=== PATIENT | female | born 1990 | race African-American/Black ===

== ENCOUNTER 2021-07-30 11:01 | Outpatient (CLI) | payer BC ==
[2021-07-30 23:48] LABS: SARS-CoV-2 PCR by NAA Not Detected (NotDetected)
== END 2021-07-30 11:02 | disposition home or self-care (01) ==
LOC: CSHLAB 11:01
PROVIDERS: ATTEND Obstetrics & Gynecology
DX: Z01.812 Encounter for preprocedural laboratory examination (principal); Z20.822 Contact with and (suspected) exposure to COVID-19
CPT/HCPCS: U0003; U0005

== ENCOUNTER 2021-08-02 18:45 | Inpatient (IN) | payer BC ==
[~2021-08-02 18:45] MED LIST: Bupivacaine 0.25% HCL 30 ML VIAL ONE
[2021-08-02] MEDS ORDERED: Diphenoxylate HCl/Atropine Tablet PO PRN ×2 (20:08)
[2021-08-02] MEDS ORDERED: Butorphanol Tartrate 1 MG/ML VIAL SLOW IVP PRN (20:08)
[2021-08-02] MEDS ORDERED: Promethazine HCl 25 MG/ML VIAL IM PRN (20:08)
[2021-08-02] MEDS ORDERED: hydrALAZINE 20 MG/ML VIAL SLOW IVP PRN (20:08)
[2021-08-02] MEDS ORDERED: Ondansetron PF 4 MG/2 ML Vial IVP PRN (20:08)
[2021-08-02] MEDS ORDERED: HYDROcodone/Acetaminophen 5/325 mg Tablet PO PRN (20:08)
[2021-08-02] MEDS ORDERED: Carboprost 250 MCG/ML AMP IM PRN (20:08)
[2021-08-02] MEDS ORDERED: Ibuprofen 800 MG TAB PO PRN (20:08)
[2021-08-02] MEDS ORDERED: Lidocaine 1% (PF) 30 ML VIAL SC PRN (20:08)
[2021-08-02] MEDS ORDERED: Acetaminophen 500 MG TAB PO PRN (20:08)
[2021-08-02 20:10] VITALS: BMI 33.1
[2021-08-02] MEDS ORDERED: Lactated Ringer's 1,000 ML IV SCH (20:15)
[2021-08-02] MEDS ORDERED: NS w/ Oxytocin 30 units 500 ML IVPB SCH (20:15)
[2021-08-02] MEDS ORDERED: NS w/ Oxytocin 30 units 500 ML IV SCH (20:15)
[2021-08-02 21:55] LABS: Hemoglobin 10.6 g/dL (12.0-15.5); Mean Corpuscular HGB CONC 31.9 g/dL (32.0-36.0); Mean Corpuscular Hemoglobin 28.8 pg (27.0-33.0); Mean Corpuscular Volume 90.2 fl (81.6-98.3); Mean Platelet Volume 11.1 fl (7.4-10.4); Platelet Count 307 10x3/uL (150-450); RBC Distribution Width 13.7 % (11.5-14.5); Red Blood Cell (RBC) Count 3.68 10x6/uL (3.90-5.03); White Blood Cell (WBC) Count 15.6 10x3/uL (3.5-10.5)
[2021-08-02 22:27] LABS: Hep B Surf Ag Non-Reactive S/CO (NonReactive)
[2021-08-02 22:28] LABS: Syphilis Antibody Nonreactive (Nonreactive); Syphilis Antibody Index 0.17 S/CO (<1.00 Non-Reactive)
[2021-08-02 22:32] LABS: HBSAg Index 0.32 S/CO (0-0.99)
[2021-08-03] MEDS ORDERED: Penicillin G Potassium 5 MILL.UNITS in Sodium Chloride 0.9% 100 ML IVPB SCH (00:01)
[2021-08-03] MEDS ORDERED: Fentanyl 2 mcg/Bup 0.1% Cadd 100 ML ONE ×2 (01:56→10:15)
[2021-08-03] MEDS: Penicillin G 2.5 MILL.units 50 ML IVPB SCH ×3 (04:27→12:16)
[2021-08-03] MEDS ORDERED: Acetaminophen 325 MG TAB PO PRN (10:31)
[2021-08-03] MEDS ORDERED: diphenhydrAMINE 50 MG/ML VIAL IVP PRN (10:31)
[2021-08-03] MEDS ORDERED: Ondansetron PF 4 MG/2 ML Vial IVP PRN (10:31)
[2021-08-03] MEDS ORDERED: Hydrocerin (Eucerin) Cream 120 gm Jar TOP PRN (10:31)
[2021-08-03] MEDS ORDERED: Lactated Ringer's 500 ML IV PRN (10:31)
[2021-08-03] MEDS ORDERED: Naloxone HCl 0.4 mg/ml Vial IVP PRN ×2 (10:31)
[2021-08-03] MEDS ORDERED: Promethazine HCl 25 MG/ML VIAL IM PRN (10:31)
[2021-08-03] MEDS ORDERED: ePHEDrine Sulfate 50 MG/10 ML VIAL SLOW IVP PRN (10:31)
[2021-08-03] MEDS ORDERED: Fentanyl 2 mcg/Bupivacaine 0.1% Cassette 100 ML EPIDURAL SCH (10:45)
[2021-08-03] MEDS ORDERED: Communication Order-Pharmacy FS SCH (10:45)
[2021-08-03] MEDS: Misoprostol 100 MCG TAB VAG SCH (10:58)
[2021-08-03] MEDS ORDERED: diphenhydrAMINE 25 MG CAP PO PRN (14:17)
[2021-08-03] MEDS ORDERED: Boostrix 0.5 ML (Tdap) VIAL IM ONE (14:17)
[2021-08-03] MEDS ORDERED: traMADol HCl 50 MG TAB PO PRN (14:17)
[2021-08-03] MEDS ORDERED: Misoprostol 200 MCG TAB VAG PRN (14:17)
[2021-08-03] MEDS ORDERED: Bisacodyl 10 MG SUPP PR PRN (14:17)
[2021-08-03] MEDS ORDERED: Preparation H Ointment 28 GM TUBE PR PRN (14:17)
[2021-08-03] MEDS ORDERED: hydrALAZINE 20 MG/ML VIAL SLOW IVP PRN (14:17)
[2021-08-03] MEDS ORDERED: Benzocaine-Menthol 82.5 ML CAN TOP PRN (14:17)
[2021-08-03] MEDS ORDERED: Milk Of Magnesia 30 ML UDCUP PO PRN (14:17)
[2021-08-03] MEDS: Ferrous Sulfate 325 MG TAB PO SCH (19:46)
[2021-08-03] MEDS: Ibuprofen 800 MG TAB PO SCH (22:13)
[2021-08-03] MEDS: Docusate Calcium (SURFAK) 240 MG CAP PO SCH (22:13)
[2021-08-04] MEDS: Ibuprofen 800 MG TAB PO SCH ×3 (05:29→21:33)
[2021-08-04] MEDS: Ferrous Sulfate 325 MG TAB PO SCH (07:47)
[2021-08-04] MEDS: Penicillin G 2.5 MILL.units 50 ML IVPB SCH (07:52)
[2021-08-04] MEDS: Misoprostol 100 MCG TAB VAG SCH ×2 (07:52→07:53)
[2021-08-04] MEDS: Prenatal Vitamin 1 TAB PO SCH (08:03)
[2021-08-04] MEDS: Docusate Calcium (SURFAK) 240 MG CAP PO SCH ×2 (08:04→21:29)
[2021-08-04] MEDS ORDERED: cloNIDine 0.1 MG TAB PO PRN (20:53)
[2021-08-04] MEDS ORDERED: NIFEdipine XL 30 MG TAB PO SCH (21:00)
[2021-08-05] MEDS: Ibuprofen 800 MG TAB PO SCH (06:25)
[2021-08-05] MEDS: Prenatal Vitamin 1 TAB PO SCH (08:59)
[2021-08-05] MEDS: Docusate Calcium (SURFAK) 240 MG CAP PO SCH (08:59)
[2021-08-05] MEDS ORDERED: NIFEdipine XL 30 MG TAB PO SCH (09:00)
[2021-08-05] MEDS: Ferrous Sulfate 325 MG TAB PO SCH (09:02)
[2021-08-05 11:55] VITALS: BP 131/72; TEMP 99.1
== END 2021-08-05 14:18 | disposition home or self-care (01) | DRG 807 ==
LOC: CSHLD 19:36 → CSHANTE 08-03 18:18
PROVIDERS: ADMIT Obstetrics & Gynecology; ATTEND Obstetrics & Gynecology
PROC: 10E0XZZ Delivery of Products of Conception, External Approach (ICD-10-PCS; principal; 2021-08-02)
PROC: 0UQMXZZ Repair Vulva, External Approach (ICD-10-PCS; 2021-08-02)
DX: O70.0 First degree perineal laceration during delivery (principal); Z37.0 Single live birth; Z20.822 Contact with and (suspected) exposure to COVID-19; Z3A.39 39 weeks gestation of pregnancy; Z88.5 Allergy status to narcotic agent; Z91.010 Allergy to peanuts
CPT/HCPCS: 51702; 85027; 86780; 86850; 86900; 86901; 87340; J2540; J2590; J3490; S0020; U0003; U0005

== ENCOUNTER 2025-05-06 12:26 | Emergency (ER) | payer BC ==
[2025-05-06 13:48] LABS: #Basophils 0.04 10x3/uL (0.0-0.2); #Eosinophils 0.15 10x3/uL (0.0-0.5); #Monocytes 0.73 10x3/uL (0.0-1.1); #Neutrophils 9.52 10x3/uL (1.5-8.4); %Basophils 0.3 % (0.0-2.0); %Eosinophils 1.1 % (0.0-6.0); %Lymphocytes 21.7 % (18.0-47.0); %Monocytes 5.5 % (0.0-10.0); %Neutrophils 71.1 % (40.0-75.0); Hematocrit 34.7 % (34.9-44.5); Hemoglobin 11.5 g/dL (12.0-15.5); Mean Corpuscular Hemoglobin 30.9 pg (27.0-33.0); Mean Corpuscular Volume 93.3 fL (81.6-98.3); Platelet Count 404 10x3/uL (150-450); Red Blood Cell (RBC) Count 3.72 10x6/uL (3.90-5.03); White Blood Cell (WBC) Count 13.38 10x3/uL (3.5-10.5)
[2025-05-06 14:04] LABS: BHCG - Serum Negative (NEGATIVE); Pregs Control Background? CLEAR/WHITE (CLR/WHITE); Pregs Control Bar Appear? YES (CONTROL BAR)
[2025-05-06 14:14] LABS: ALT (SGPT) 25 U/L (Less than 34); AST (SGOT) 20 U/L (11-34); Albumin 3.5 g/dL (3.1-4.5); Alkaline Phosphatase 49 U/L (40-110); Anion Gap 10 mmol/L (10-20); BUN (Urea Nitrogen) 10 mg/dL (7.0-18.7); Bilirubin, Total 0.6 mg/dL (0.3-1.2); Calc. Creatinine Clearance 0 mL/min (70-130); Calcium 8.8 mg/dL (7.8-10.44); Carbon Dioxide 26 mmol/L (22-29); Chloride 106 mmol/L (98-107); Globulin 4.0 g/dL (2.4-3.5); Glucose 76 mg/dL (70-105); Potassium 3.8 mmol/L (3.5-5.1); Sodium 138 mmol/L (136-145)
[2025-05-06 14:19] LABS: Troponin I Less than 0.010 ng/mL (< 0.028)
== END 2025-05-06 15:03 | disposition home or self-care (01) ==
LOC: CSHERS 12:26
DX: R07.89 Other chest pain (principal); J45.909 Unspecified asthma, uncomplicated; F41.9 Anxiety disorder, unspecified
CPT/HCPCS: 36415; 71045; 80053; 84484; 84703; 85025; 93005; J7620